=== PATIENT | male | born 1970 | race African-American/Black ===

== ENCOUNTER 2016-06-27 23:18 | Emergency (ER) | payer OTHER ==
[~2016-06-27] VITALS: Ht 180.3 cm; Wt 91.0 kg
[~2016-06-27 23:18] MED LIST: FISHOIL PO; FOLI1TAB7 PO; GLUC500C60; L-GLUTAMINE PO; LORA-741 PO; METR500T PO; WLLSR/150 PO
[2016-06-27 23:25] VITALS: TEMP 37.1; Ht 180.3 cm; Wt 91.0 kg
[2016-06-27] MEDS ORDERED: OXYCODONE/ACETAMINOPHEN 5-325 TAB PO STA (23:39)
[2016-06-27] MEDS ORDERED: IBUPROFEN 600 MG TAB PO STA (23:39)
[2016-06-28] MEDS ORDERED: BSP5 PO (00:54)
[2016-06-28] MEDS ORDERED: OXYCODONE IR HOME PACK PO ONE (01:00)
[2016-06-28] MEDS ORDERED: CYCL10TA6 PO (01:01)
[2016-06-28] MEDS ORDERED: PRED50TA PO (01:01)
[2016-06-28] MEDS ORDERED: OXYC1TAB3 PO (01:01)
[2016-06-28 01:20] VITALS: BP 131/69; PULSE 66; O2SAT 98
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
== END 2016-06-28 01:20 | disposition home or self-care (01) ==
LOC: EDBD 23:18 → C.EDA 23:19
DX: M54.2 Cervicalgia (principal); V43.52XA Car driver injured in collision with other type car in traffic accident, initial encounter